=== PATIENT | female | born 1945 | race Caucasian/White ===

== ENCOUNTER 2024-05-23 08:34 | Day surgery (SDC) | payer MEDICARE, BC ==
[~2024-05-23 08:34] MED LIST: Sodium Chloride 0.9% 10 ML Syringe FLUSH PRN; Sodium Chloride 0.9% 10 ML Syringe FLUSH SCH
[2024-05-23] MEDS ORDERED: Lidocaine 1% PF 2 ML SDV ONE ×2 (08:35)
[2024-05-23] MEDS ORDERED: Propofol 200 MG/20 ML SDV ONE ×2 (08:35→09:37)
[2024-05-23] MEDS ORDERED: Lidocaine 1% 4 ML ONE (08:35)
[2024-05-23] MEDS: Lactated Ringers 1,000 ML IV SCH (09:10)
[2024-05-23] MEDS ORDERED: fentaNYL 100 MCG/2 ML SDV ONE (09:11)
[2024-05-23] MEDS ORDERED: Sodium Chloride 0.9% 10 ML Syringe FLUSH ONE (10:03)
[2024-05-23] MEDS: Iopamidol 612 MG/ML 100 ML Bottle IVPUSH ONE (10:37)
[2024-05-23] MEDS: Iopamidol 612 MG/ML 30 ML SDV IVPUSH ONE (10:37)
[2024-05-23] MEDS ORDERED: Iopamidol 612 MG/ML 30 ML SDV IV ONE (11:00)
[2024-05-23] MEDS ORDERED: Iopamidol 612 MG/ML 100 ML Bottle IVPUSH ONE (11:00)
== END 2024-05-23 11:25 | disposition home or self-care (01) ==
LOC: JD.SDS 08:34
PROVIDERS: ATTEND Surgery
DX: Z12.11 Encounter for screening for malignant neoplasm of colon (principal); R19.5 Other fecal abnormalities; D12.2 Benign neoplasm of ascending colon; C18.3 Malignant neoplasm of hepatic flexure; I10 Essential (primary) hypertension; E78.00 Pure hypercholesterolemia, unspecified; Z79.899 Other long term (current) drug therapy
CPT/HCPCS: 45380; 45381; 71260; 74177; J2704; J3010; J7120; Q9967; 00811; 99100; J3490

== ENCOUNTER 2024-06-08 10:02 | Inpatient (IN) | payer MEDICARE, BC ==
[~2024-06-08 10:02] MED LIST changes: -Sodium Chloride 0.9% 10 ML Syringe FLUSH SCH
[2024-06-08] MEDS: Lactated Ringers 1,000 ML IV SCH (10:55)
[2024-06-08] MEDS ORDERED: fentaNYL 250 MCG/5 ML SDV ONE (11:08)
[2024-06-08] MEDS ORDERED: Propofol 200 MG/20 ML SDV ONE (11:08)
[2024-06-08] MEDS ORDERED: Rocuronium 50 MG/5 ML Vial ONE (11:36)
[2024-06-08] MEDS ORDERED: ePHEDrine 50 MG/ML SDV ONE (11:36)
[2024-06-08] MEDS ORDERED: Ondansetron 4 MG/2 ML SDV ONE (12:01)
[2024-06-08] MEDS ORDERED: fentaNYL 100 MCG/2 ML SDV ONE (12:08)
[2024-06-08] MEDS: Midazolam 1 MG/ML 2 ML SDV IVPUSH ONE (12:15)
[2024-06-08] MEDS ORDERED: HYDROmorphone 0.5 MG/0.5 ML Syringe IVPUSH PRN ×3 (12:44→16:38)
[2024-06-08] MEDS ORDERED: fentaNYL 100 MCG/2 ML SDV IVPUSH PRN ×2 (12:44→16:38)
[2024-06-08] MEDS ORDERED: Ondansetron 4 MG/2 ML SDV IVPUSH PRN (12:44)
[2024-06-08] MEDS ORDERED: Heparin Sodium 5,000 Units/ML Vial ONE (12:48)
[2024-06-08] MEDS: Bupivacaine 0.5% 30 ML SDV ONE (12:51)
[2024-06-08] MEDS: EPINEPHrine 1 MG/ML SDV ONE (12:51)
[2024-06-08] MEDS ORDERED: HYDROmorphone 0.5 MG/0.5 ML Syringe ONE ×2 (14:07→14:42)
[2024-06-08] MEDS ORDERED: Ondansetron 4 MG Tab.DIS PO PRN (16:34)
[2024-06-08] MEDS: Sodium Chloride 0.9% 10 ML Syringe FLUSH SCH (18:43)
[2024-06-08] MEDS: Piperacillin/Tazobactam 4.5 GM in Sodium Chloride 0.9% 100 ML IV ONE (18:43)
[2024-06-09] MEDS: Lactated Ringers 1,000 ML IV SCH (03:52)
[2024-06-09 06:48] LABS: HEMATOCRIT 32.2 % (37.0-47.0); MEAN CORPUSCULAR HEMOGLOBIN 27.6 pg (28.0-32.0); MEAN CORPUSCULAR HGB CONC 31.4 g/dl (32.0-36.0); MEAN PLATELET VOLUME 9.6 fl (9.4-12.3); PLATELET COUNT,PLT 148 K/mm3 (150-400); RED BLOOD CELL COUNT 3.66 M/mm3 (4.10-5.30); WHITE BLOOD CELL COUNT,WBC 8.44 K/mm3 (3.9-11.3)
[2024-06-09 06:49] LABS: HEMOGLOBIN 10.1 gm/dl (12.0-16.0)
[2024-06-09 07:04] LABS: ANION GAP 11.3 (5-15); CALCIUM 8.3 mg/dL (8.5-10.1); CREATININE 0.7 mg/dL (0.55-1.02); EST CRCL DRUG DOSING (CG) 64.01 mL/min; POTASSIUM,K 3.3 mEq/L (3.5-5.1)
[2024-06-09] MEDS: oxyCODONE 5 MG Tab PO PRN (07:26)
[2024-06-09] MEDS: Rosuvastatin 10 MG Tab PO SCH (08:27)
[2024-06-09] MEDS: Enoxaparin 40 MG/0.4 ML Syringe SUBCUT SCH (08:27)
[2024-06-10] MEDS: Acetaminophen 325 MG Tab PO PRN (01:14)
== END 2024-06-10 11:03 | disposition home or self-care (01) | DRG 331 ==
LOC: JD.MS 10:02
PROVIDERS: ADMIT Surgery; ATTEND Surgery
PROC: 07BH3ZX Excision of Right Inguinal Lymphatic, Percutaneous Approach, Diagnostic (ICD-10-PCS; 2024-06-08)
PROC: 0DTF4ZZ Resection of Right Large Intestine, Percutaneous Endoscopic Approach (ICD-10-PCS; principal; 2024-06-08 11:45)
DX: C18.9 Malignant neoplasm of colon, unspecified (principal); I10 Essential (primary) hypertension; E78.00 Pure hypercholesterolemia, unspecified; H91.90 Unspecified hearing loss, unspecified ear; Z90.49 Acquired absence of other specified parts of digestive tract; Z98.49 Cataract extraction status, unspecified eye; Z86.16 Personal history of COVID-19; Z90.710 Acquired absence of both cervix and uterus
CPT/HCPCS: 00840; 36415; 80048; 82947; 85027; 93005; 94760; 99100; A9270-GY; J0171; J0665; J1171; J1644; J1650; J2250; J2405; J2704; J3010; J3490; J7120

== ENCOUNTER 2025-07-03 07:15 | Day surgery (SDC) | payer MEDICARE, BC ==
[2025-07-03] MEDS: Lactated Ringers 1,000 ML IV SCH (07:45)
[2025-07-03] MEDS ORDERED: Propofol 200 MG/20 ML SDV ONE (07:53)
[2025-07-03] MEDS ORDERED: Lidocaine 1% 4 ML ONE (07:53)
[2025-07-03] MEDS ORDERED: Sodium Chloride 0.9% 10 ML Syringe FLUSH SCH (09:00)
== END 2025-07-03 10:00 | disposition home or self-care (01) ==
LOC: JD.SDS 07:15
PROVIDERS: ATTEND Surgery
DX: Z12.11 Encounter for screening for malignant neoplasm of colon (principal); E78.00 Pure hypercholesterolemia, unspecified; I10 Essential (primary) hypertension; Z85.038 Personal history of other malignant neoplasm of large intestine; Z98.0 Intestinal bypass and anastomosis status; Z79.899 Other long term (current) drug therapy
CPT/HCPCS: G0105; J2003; J2704; J7120; 00812; 99100